=== PATIENT | male | born 2000 | race Caucasian/White ===

== ENCOUNTER 2023-08-22 09:00 | Emergency (ER) | payer OTHER, SELFPAY ==
[2023-08-22 09:01] VITALS: BP 137/87; PULSE 84; RESP 16; TEMP 36.6; O2SAT 99; BMI 36.0
--- NOTE | 2023-08-22 09:20 | RAD_ITS ---
EXAM: XR RIGHT KNEE COMPLETE, 4 OR MORE VIEWS CLINICAL INDICATION: injury TECHNIQUE: Four or more views of the right knee. COMPARISON: No relevant prior studies available. FINDINGS: BONES/JOINTS: No acute fracture, subluxation or joint effusion. SOFT TISSUES: Normal. No soft tissue swelling or gas. No radiopaque foreign body. RAD/Knee 4 or More Views IMPRESSION: Intact right knee. Electronically Signed: Erik Matias MD at 10:04 [facility] ,
[2023-08-22] MEDS: traMADol 50 MG Tablet PO (09:23)
--- NOTE | 2023-08-22 09:23 | EDS_ITS ---
HPI History of Present Illness Chief Complaint: Lower Extremity Injury Informant: patient Narrative Narrative: Patient was playing kickball after work this morning, he states he tried to slide into a base, and he felt a snap in his right knee with extreme pain and then he felt some type of clunk back, concerned maybe he dislocated something. Still having pain able to walk but it hurts. Has never had this happen before to either of his knees. Denies any other injury. PFSH PFSH Medical History no medical history no medical history Home Medications tramadol 50 mg tablet 50 mg PO Q6H PRN pain 3 days #10 tabs 08/22/23 [Rx Last T aken Unknown] Allergy/AdvReac Type Severity Reaction Status Date / Time No Known Allergies Allergy Verified 08/22/23 09:03 Family History no significant family his Surgical History no surgical history Social History Smoking Status: Never smoker ROS ROS ED Constitutional Constitutional ED: Denies chills or fever(s) Musculoskeletal Musculoskeletal: Reports extremity pain; Denies neck pain Integumentary Denies Abrasions, rash or wounds Neurologic Neurologic: Denies paresthesias or weakness EXAM Physical Exam Const Vital Signs: 08/22/23 09:01 Temperature 97.8 F Temperature Source Temporal Pulse Rate 84 Respiratory Rate 16 Blood Pressure 137/87 H Blood Pressure Mean 103 Pulse Ox 99 Oxygen Delivery Method Room Air Positive well nourished and well developed General Appearance ED: well developed and NAD Neck full ROM and supple Back/Spine normal ROM and normal to inspection Extremity Extremity Narrative: Limited range of motion right knee due to pain but able to fully extend, extensor mechanism is intact. All 4 ligaments are stable and intact with short endpoints, no significant pain on stressing, this includes negative anterior and posterior drawer signs. Most of the tenderness is anteriorly, and the distal quadriceps, the patella and surrounding tissues, and the tibial tuberosity. Neuro oriented x3, no focal motor deficits and no sensory deficits noted Sensorium / Orientation: alert Psych mental status grossly normal and thought process normal Skin no wounds Rashes: no rashes MDM MDM MDM Narrative Medical decision making narrative: This is suspicious for a transient patellar dislocation and spontaneous reduction. 4 view x-ray series of the right knee were obtained and on my interpretation are negative for acute fracture or deformity. He clinically does not have a deformity right now. He had on baggy thick pants and so did not see the deformity when it occurred, he just felt it. He will be placed in a knee immobilizer, given crutches and instructions for weightbearing with the immobilizer on, analgesics, and follow-up with orthopedics. Radiography Diagnostic Testing: Clinical Impression(s) from Imaging Studies Knee X-Ray 08/22/23 09:20 IMPRESSION: Intact right knee. Electronically Signed: Erik Matias MD at 10:04 EST , Discharge Plan Triage Chief Complaint: Lower Extremity Injury ED Provider: Tam Ruiz Dx/Rx/DC Orders Clinical Impression: Closed dislocation of right patella Instructions: Using Crutches: Weight-Bearing, ED Patellar Dislocation/Subluxation Prescriptions: New tramadol 50 mg tablet 50 mg PO Q6H PRN (Reason: pain) 3 Days Qty: 10 0RF Primary Care Provider: Milton Nix Referrals: Milton Nix MD [Primary Care Provider] - Tony Zapata MD [Med Staff - Active Staff] - As soon as possible Disposition Disposition: Home, Self Care
== END 2023-08-22 11:36 | disposition home or self-care (01) ==
PROVIDERS: Emergency Provider Emergency Medicine; PCP Family Medicine; Visit Provider Emergency Medicine
DX: S83.004A Unspecified dislocation of right patella, initial encounter (principal); W01.0XXA Fall on same level from slipping, tripping and stumbling without subsequent striking against object, initial encounter
CPT/HCPCS: 73564; 99285

== ENCOUNTER 2023-10-07 11:30 | Outpatient (RCR) | payer OTHER, SELFPAY ==
--- NOTE | 2023-09-02 10:24 | HP.PTEVAL ---
Patient's Visit Information Visit Information Visit Information: ART COSTA is a 23 year old M referred to Physical Therapy by Dr. Tony Zapata MD with a diagnosis of Right Patellar Dislocation 08/22/23. Date of Evaluation: 09/02/23 Physical Therapist: Yue Lozada DPT Visit Plan Frequency: 2-3x /Week Duration: 4 Weeks Plan: Right Patellar Dislocation 08/22/23- Focus on LE ROM and Strength/Stabilization HEP Given IE: TKE, weight shift, knee extension in sitting and supine, heel slide supine, quad set Subjective Subjective: Dislocated right knee playing kickball at work- 08/22/23- went to the ER- x-rays were negative- they put him in an immobilizer- follow up with Dr. Zapata and he put him in the J-Brace. He is wearing the J-Brace all the time except for sleeping. He has never had an previous dislocations- and it relocated by itself. Worst: 8/10 Agg: walking, bumping it, driving long periods of time. Eases: ice, propping it up, Tylenol. Best: 0/10. He sleeps with a pillow under the knee. Pain is located on the medial side of the knee and posterior. The pain will radiate into the hip and palacios if he has been on it all day. Sleep: disturbed sometimes when he make sudden movements. 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 Feels the knee is slowly getting better. First injury on this knee. No N/T in the LE. He is currently off work and wants to get back [employer]- Sep 10- light duty. PMHx/Meds: no change since ortho visit. Objective Objective: Posture: forward head, rounded shoulders- can correct with verbal cues Gait: antalgic- poor heel/toe pattern due to lack or extension on the right HR/TR: able with UE A SLS: weight shift Stairs: non recip with 2 HR Observation: J-Brace on the right knee Girth: Patella: 47.5 6 Below: 47.5 ROM: -20 degrees from neutral, Flexion: 115 degrees Ankle: 5/5, Knee: Extn:35 Flexion:12 Hip: SLR: mild lag, 4/5 throughout, Core: fair Flex: HS: severe, Gastroc: moderate Palpation: tender along medial joint line Balance/Special Test Scores Lower Extremity Functional Score: 35 Goals Goal 1:: Patient will report participation in home exercise program activities a minimum of 5 days per week, as adjunct to skilled physical therapy intervention in preparation for independent home management upon discharge. Goal Time Frame: 4-6 Weeks Goal 2:: Patient will report an increase of 9 points on the LEFS to show minimal clinical significant difference on patients functional outcome measure. Goal Time Frame: 4-6 Weeks Goal 3:: Patient will ambulate >300 feet with a normalized gait pattern Goal Time Frame: 4-6 Weeks Goal 4:: Patient will asc/desc 8 recip with no HR Goal Time Frame: 4-6 Weeks Goal 5:: Patient will report 80% improvement Goal Time Frame: 4-6 Weeks Goal 6:: Patient will demo 0-130 degrees Goal Time Frame: 4-6 Weeks Rehabilitation Potential Physical Therapy Diagnosis: Patient presents with hypomobility- he has decreased pain free ROM, LE and core strength/stabilization, flex, proprioception and muscular endurance leading to abnormal gait and increased pain with ADL's. Rehabilitation Potential: Good Anticipated Interventions Patient/Client Instruction: Educate patient on: Benefits of Fitness Program Therapeutic Exercise to Include: Strength training, Power training, Endurance training, Balance training, Coordination, Agility training, Body mechanics, Postural training, Flexibilty training, Gait and locomotor training, Neuromotor development and Dynamic Lumbar Stabilization For the Purpose of:: To improve muscle performance and motor function TENS: Yes Cryotherapy (ice pack, ice massage): Yes Thermo therapy (hot pack): Yes Text: Thank you for the opportunity to evaluate your patient. For Medicare and Medicare HMO plans, please review the plan of care and approve it. It will need to be FAXED BACK to us at [phone] for Medicare purposes. For Medicare only, by signing this I certify the plan of care. Please let me know if there are questions or concerns regarding this plan of care. Physician Signature: Date:
--- NOTE | 2023-12-14 11:11 | HP.PT.NRP ---
Patient Information Patient Information: ART COSTA was seen in my office for initial evaluation on 09/02/23. The following Plan of Care was established for this patient: POC Established Initial Frequency: 2-3x /Week Initial Duration: 4 Weeks Anticipated Interventions Patient/Client Instruction: Educate patient on: Benefits of Fitness Program Therapeutic Exercise to Include: Strength training, Power training, Endurance training, Balance training, Coordination, Agility training, Body mechanics, Postural training, Flexibilty training, Gait and locomotor training, Neuromotor development and Dynamic Lumbar Stabilization For the Purpose of:: To improve muscle performance and motor function TENS: Yes Cryotherapy (ice pack, ice massage): Yes Thermo therapy (hot pack): Yes Last Seen Last Seen: This patient was last seen in our office . Pertinent comments regarding their Physical therapy will appear below: Patient to continue HEP- was doing well in therapy and was back to work- appropriate to be d/c. At this point I will be discontinuing this patient from physical therapy. I would be happy to see this patient again in the future if found appropriate by the physician. Thank you! Yue Lozada DPT Balance/Gait/Functional tests Balance/Special Test Scores Lower Extremity Functional Score: 35
== END 2023-10-07 19:00 | disposition home or self-care (01) ==
LOC: PT 11:30
PROVIDERS: PCP Family Medicine; Referring Provider Orthopaedic Surgery Sports Medicine; Visit Provider Orthopaedic Surgery Sports Medicine
DX: S83.004D Unspecified dislocation of right patella, subsequent encounter (principal)
CPT/HCPCS: 97110; 97162

== ENCOUNTER → 2025-06-13 | Outpatient (CLI) | payer OTHER, SELFPAY ==
[2025-06-13 12:33] LABS: Hematocrit 46.2 % (40-54); Hemoglobin 16.0 g/dL (13.0-16.5); Immature Granulocytes Count 0.130 X10^3/uL (0.0-0.0); Mean Corp Hgb Conc 34.6 g/dL (32-36); Mean Corpuscular Volume 84.9 fL (80-94); Mean Platelet Vol. 8.9 fl (6.2-12.0); NRBC Flagged by Analyzer 0 % (0-5); Platelet Count 236 K/mm3 (150-450); RBC Distribution Width CV 12.8 % (11.6-14.6); RBC Distribution Width SD 38.9 fl (35.1-43.9); Red Blood Count 5.44 M/mm3 (4.6-6.2); White Blood Count 9.5 K/mm3 (4.4-11.0)
[2025-06-13 14:21] LABS: AST(SGOT) 27 U/L (<=37); Alanine Aminotransfer ALT/SGPT 31 U/L (<=46); Albumin, Serum 4.7 g/dL (3.5-5.0); Alkaline Phosphatase 50 U/L (40-129); Anion Gap 12 (5-15); BUN 20 mg/dL (4-19); BUN/Creat Ratio 22.8 RATIO (10-20); Calcium,Total 9.5 mg/dL (7.6-11.0); Carbon Dioxide 20.7 mmol/L (21.0-32.0); Chloride 107 mmol/L (98-108); Cholesterol 166 mg/dL (<=200); Globulin 2.8 g/dL (2.2-4.2); Glucose 96 mg/dL (70-99); Low Density Lipoprotein Calc. 97 mg/dL; Potassium 4.3 mmol/L (3.3-5.1); Triglycerides 112 mg/dL; Very Low Density Lipoprotein 22 mg/dL (5-40); cholesterol:hdl ratio screen 3.53
== END | disposition home or self-care (01) ==
LOC: LAB 12:05
PROVIDERS: PCP Internal Medicine; Referring Provider Internal Medicine; Visit Provider Internal Medicine
DX: Z00.00 Encounter for general adult medical examination without abnormal findings (principal)
CPT/HCPCS: 36415; 80053; 80061; 85025